=== PATIENT | male | born 1980 | race Caucasian/White ===

== ENCOUNTER 2017-11-20 09:07 | Emergency (ER) | payer MEDICAID ==
[~2017-11-20] VITALS: Ht 167.6 cm; Wt 66.2 kg
[2017-11-20 09:12] VITALS: BP 110/73; Ht 167.6 cm; Wt 66.2 kg
== END 2017-11-20 09:54 | disposition home or self-care (01) ==
LOC: ED 09:07
DX: J02.9 Acute pharyngitis, unspecified (principal); R09.81 Nasal congestion; J06.9 Acute upper respiratory infection, unspecified
CPT/HCPCS: J1885